=== PATIENT | female | born 1940 | race Caucasian/White ===

== ENCOUNTER 2018-11-21 18:39 | Inpatient (IN) | payer BC, MEDICARE ==
[~2018-11-21] VITALS: Ht 162.6 cm; Wt 40.4 kg
[2018-11-21] MEDS ORDERED: METHYLPREDNISOLONE SOD SUCC 125 MG/2 ML VIAL IV STA (18:48)
[2018-11-21] MEDS ORDERED: IPRATROPIUM BROMIDE (0.02%) 0.5MG/2.5ML NEB HHN STA (18:48)
[2018-11-21] MEDS: ALBUTEROL (0.083%) 2.5MG/3ML NEB HHN SCH ×3 (18:55→20:46)
[2018-11-21 19:41] LABS: CHLORIDE 104 mEq/L (98-107)
[2018-11-21 19:42] LABS: BASOPHILS % 0.5 % (0.0-2.0); EOSINOPHILS % 0.5 % (0.0-5.0); HEMATOCRIT. 45.4 % (36.0-48.0); HEMOGLOBIN. 14.8 g/dL (12.0-16.0); LYMPHOCYTES % 7.4 % (20.0-50.0); MEAN CORPUSCULAR HEMOGLOBIN 31.6 pg (28.0-32.0); MEAN CORPUSCULAR VOLUME 96.5 fL (81.0-99.0); MEAN PLATELET VOLUME 8.1 fl (7.4-10.4); MONOCYTES % 5.6 % (2.0-8.0); PLATELET 399 x1000/uL (130-400); RED CELL DISTRIBUTION WIDTH 14.8 % (11.6-14.6)
[2018-11-21 22:55] VITALS: BP 88/43
[2018-11-22 00:33] VITALS: BP 88/43
[2018-11-22] MEDS ORDERED: SODIUM CHLORIDE 0.9% 500 ML IV STA (01:28)
[2018-11-22] MEDS ORDERED: LORAZEPAM 2MG/ML CPJ IV PRN (01:30)
[2018-11-22] MEDS ORDERED: ONDANSETRON HCL 4MG/2ML INJ IV PRN (01:30)
[2018-11-22] MEDS ORDERED: ACETAMINOPHEN 325MG TABLET PO PRN (01:30)
[2018-11-22] MEDS ORDERED: IPRATROPIUM/ALBUTEROL 0.5-3(2.5)MG/3ML NEB INH PRN (01:30)
[2018-11-22] MEDS ORDERED: MAGNESIUM/ALUMINUM HYDROXIDE/SIMETHICONE 30ML UDC PO PRN (01:30)
[2018-11-22] MEDS ORDERED: HYDROMORPHONE HCL/PF 2MG/ML CPJ IV PRN (01:30)
[2018-11-22] MEDS ORDERED: DIPHENHYDRAMINE 50MG/ML VIAL IV PRN (01:30)
[2018-11-22] MEDS ORDERED: GUAIFENESIN 200MG/10ML SUGAR FREE UDC PO PRN (01:30)
[2018-11-22] MEDS ORDERED: DOCUSATE SODIUM 100MG CAPSULE PO PRN (01:30)
[2018-11-22] MEDS ORDERED: CLONIDINE 0.1MG TABLET PO PRN (01:30)
[2018-11-22] MEDS ORDERED: HYDROCODONE/ACETAMINOPHEN 10/325MG TABLET PO PRN (01:30)
[2018-11-22] MEDS ORDERED: NA PHOS,M-B/NA PHOS,DI-BA ENEMA 118ML PR PRN (01:30)
[2018-11-22] MEDS ORDERED: HYDRALAZINE 20MG/ML VIAL IV PRN (01:30)
[2018-11-22] MEDS: METHYLPREDNISOLONE SOD SUCC 125 MG/2 ML VIAL IV SCH ×3 (01:54→11:24)
[2018-11-22 04:00] VITALS: BP 101/39
[2018-11-22] MEDS ORDERED: LEVOFLOXACIN 500MG PREMIX 100 ML IV NR (04:00)
[2018-11-22] MEDS: SODIUM CHLORIDE 0.9% INJ 3ML FLUSH IVF SCH ×3 (06:26→20:41)
[2018-11-22 07:49] LABS: CREATINE KINASE MB FRACTION 2.4 ng/mL (0.5-3.6)
[2018-11-22 08:00] VITALS: BP 113/54
[2018-11-22] MEDS: ENOXAPARIN 30MG/0.3ML SYR SUBCUT SCH (10:18)
[2018-11-22] MEDS: ASPIRIN 81MG EC TABLET PO SCH (10:18)
[2018-11-22 12:00] VITALS: BP 125/47
[2018-11-22] MEDS ORDERED: PRED10TA PO (15:02)
[2018-11-22] MEDS ORDERED: SERT100T PO (15:02)
[2018-11-22] MEDS ORDERED: SIMV20TA2 PO (15:02)
[2018-11-22] MEDS ORDERED: DORZ10DR9 RIGHTEYE (15:02)
[2018-11-22] MEDS ORDERED: LATA2.5D2 EACHEYE (15:02)
[2018-11-22] MEDS ORDERED: AZIT250T12 PO (15:02)
[2018-11-22] MEDS ORDERED: MULT-1116 PO (15:02)
[2018-11-22] MEDS: MULTIVITAMINS,THER W-MINERALS TABLET PO SCH (15:15)
[2018-11-22 16:00] VITALS: BP 122/57
[2018-11-22] MEDS: PREDNISONE 20MG TABLET PO SCH (17:00)
[2018-11-22] MEDS: IPRATROPIUM/ALBUTEROL 0.5-3(2.5)MG/3ML NEB HHN SCH ×2 (17:20→20:52)
[2018-11-22] MEDS: BUDESONIDE 0.5MG/2ML NEB HHN SCH ×2 (17:27→20:52)
[2018-11-22 20:00] VITALS: BP 106/46
[2018-11-22] MEDS ORDERED: DORZOLAM/TIMOLOL 2.23/0.68% OPHTH DROPS 10ML RIGHTEYE SCH (23:00)
[2018-11-23 00:07] VITALS: BP 108/47
[2018-11-23] MEDS: IPRATROPIUM/ALBUTEROL 0.5-3(2.5)MG/3ML NEB HHN SCH ×5 (00:44→15:03)
[2018-11-23 04:00] VITALS: BP 126/56
[2018-11-23] MEDS: SODIUM CHLORIDE 0.9% INJ 3ML FLUSH IVF SCH ×2 (05:21→14:25)
[2018-11-23] MEDS ORDERED: LEVOFLOXACIN 250MG PREMIX 50 ML IV SCH (06:00)
[2018-11-23 07:01] LABS: HEMATOCRIT. 41.3 % (36.0-48.0); HEMOGLOBIN. 13.5 g/dL (12.0-16.0); MEAN CORPUSCULAR HEMOGLOBIN 31.5 pg (28.0-32.0); MEAN CORPUSCULAR VOLUME 96.2 fL (81.0-99.0); MEAN PLATELET VOLUME 8.6 fl (7.4-10.4); PLATELET 371 x1000/uL (130-400); RED BLOOD CELL COUNT 4.29 mill/uL (4.2-5.4); RED CELL DISTRIBUTION WIDTH 14.3 % (11.6-14.6)
[2018-11-23 08:00] VITALS: BP 108/39
[2018-11-23 08:19] LABS: PLATELET ESTIMATE NORMAL
[2018-11-23] MEDS: PREDNISONE 20MG TABLET PO SCH (08:38)
[2018-11-23] MEDS: MULTIVITAMINS,THER W-MINERALS TABLET PO SCH (08:38)
[2018-11-23] MEDS: ENOXAPARIN 30MG/0.3ML SYR SUBCUT SCH (08:39)
[2018-11-23] MEDS: ASPIRIN 81MG EC TABLET PO SCH (08:39)
[2018-11-23 08:55] LABS: CHLORIDE 107 mEq/L (98-107)
[2018-11-23] MEDS: DORZOLAMIDE 2% OPHTH 10 ML BOTTLE RIGHTEYE SCH ×2 (08:58→14:25)
[2018-11-23] MEDS ORDERED: TIMOLOL MALEATE 0.5% OPHTH DROPS 5ML RIGHTEYE SCH (09:00)
[2018-11-23 09:07] LABS: LDL CHOLESTEROL 78 mg/dL (5-100)
[2018-11-23 09:08] LABS: HDL CHOLESTEROL 85 mg/dL (40-59)
[2018-11-23 09:11] LABS: T4 FREE 0.86 ng/dL (0.76-1.46)
[2018-11-23 12:00] VITALS: BP_SYST 122; BP_DIAS 33; BP_DIAS 54
[2018-11-23 12:12] VITALS: BP 122/56
[2018-11-23] MEDS ORDERED: LATANOPROST 0.005% OPHTH DROPS 2.5ML EACHEYE SCH (23:00)
== END 2018-11-23 17:14 | disposition home or self-care (01) | DRG 189 ==
LOC: ER 18:39 → 7WST 20:50 → ENRESERV 21:43
PROVIDERS: ADMIT Internal Medicine; ATTEND Internal Medicine
PROC: 5A09357 Assistance with Respiratory Ventilation, Less than 24 Consecutive Hours, Continuous Positive Airway Pressure (ICD-10-PCS; principal; 2018-11-21)
DX: J96.00 Acute respiratory failure, unspecified whether with hypoxia or hypercapnia (principal); E46 Unspecified protein-calorie malnutrition; C79.51 Secondary malignant neoplasm of bone; Z68.1 Body mass index [BMI] 19.9 or less, adult; J44.1 Chronic obstructive pulmonary disease with (acute) exacerbation; I49.3 Ventricular premature depolarization; C50.919 Malignant neoplasm of unspecified site of unspecified female breast; H40.9 Unspecified glaucoma; J84.10 Pulmonary fibrosis, unspecified; X58.XXXA Exposure to other specified factors, initial encounter; T38.0X5A Adverse effect of glucocorticoids and synthetic analogues, initial encounter; Z87.891 Personal history of nicotine dependence; Z90.10 Acquired absence of unspecified breast and nipple; Z85.3 Personal history of malignant neoplasm of breast; Z90.13 Acquired absence of bilateral breasts and nipples; Y93.89 Activity, other specified; Y92.89 Other specified places as the place of occurrence of the external cause; Y99.8 Other external cause status
CPT/HCPCS: 36415; 71045; 80061; 82550; 82553; 84439; 84443; 84484; 87804; 93005; 96374; 99285; J1200; J1650; J1956; J2930; J7040; J7050; J7512; J7611; J7620; J7626